=== PATIENT | female | born 1990 | race Hispanic/Latino ===

== ENCOUNTER 2018-03-22 17:34 | Emergency (ER) | payer SELFPAY ==
[~2018-03-22] VITALS: Ht 162.6 cm; Wt 65.3 kg
[2018-03-22 17:56] VITALS: BP 122/83
--- NOTE | 2018-03-22 21:25 | ED GENERAL ADULT ---
History of Present Illness General Chief Complaint: Abdominal Pain/Flank Pain Stated Complaint: ABD PAIN Source: patient Exam Limitations: no limitations Vital Signs & Intake/Output Vital Signs & Intake/Output Vital Signs Date Time Temp Pulse Resp B/P B/P Pulse O2 O2 Flow FiO2 Mean Ox Delivery Rate 03/22 1756 98.0 76 18 122/83 99 Room Air Allergies Coded Allergies: No Known Allergies (03/22/18) Triage Note: 28F REPORTS LOW PELVIC PAIN CENTRALLY LOCATED NON-RADIATING WITHOUT DYSURIA. STATES IT FEELS LIKE CRAMPS FROM MENSTRUATION, BUT SHE IS 10 DAYS LATE FOR HER PERIOD. DENIES VAGINAL DISCHARGE. Triage Nurses Notes Reviewed? yes : No Patient currently breastfeeds: No HPI: 28-year-old female presents with lower abdominal pain for the past couple of days. She reports last menstrual period was end of January. She denies fever, chills, nausea, vomiting or dysuria, vaginal discharge. She denies flank pain. Patient denies diarrhea. Past History Travel History Traveled to [place] past 21 day No Medical History Any Pertinent Medical History? none Surgical History Surgical History: non-contributory Psychosocial History What is your primary language Ukrainian Tobacco Use: Never used Family History Hx Contributory? No Review of Systems Review of Systems Constitutional: Denies: chills, diaphoresis, fever. EENTM: Denies: blurred vision, double vision, visual changes. Respiratory: Denies: cough, hemoptysis, orthopnea. Cardiovascular: Denies: chest pain, edema, orthopena. GI: Reports: abdominal pain. Denies: bloating, constipation, diarrhea, nausea, vomiting. Genitourinary: Denies: discharge, dysuria, frequency. Musculoskeletal: Denies: back pain, gout. Skin: Denies: cysts, change in skin color. Neurological/Psychological: Denies: anxiety, ataxia. Physical Exam Physical Exam General Appearance: well developed/nourished, no apparent distress, alert, awake Head: atraumatic, normal appearance Eyes: Bilateral: PERRL, EOMI. Ears, Nose, Throat: normal pharynx, normal ENT inspection Neck: normal inspection, supple Respiratory: normal breath sounds, chest non-tender Cardiovascular: regular rate/rhythm Gastrointestinal: normal bowel sounds, soft, mild supra pubic tenderness. no RLQ pain Back: normal inspection Core Measures ACS in differential dx? No CVA/TIA Diagnosis: No Sepsis Present: No Sepsis Focused Exam Completed? No Progress Differential Diagnoses . Plan of Care: Orders Procedure Date/time Status LIPASE 03/22 2111 Complete HUMAN BETA HCG TITRE 03/22 2111 Complete COMPREHENSIVE METABOLIC PANEL 03/22 2111 Complete CBC WITHOUT DIFFERENTIAL 03/22 2111 Complete TYPE & SCREEN (NOT X-MATCH) 03/22 2111 Complete URINE 03/22 1757 Complete URINALYSIS 03/22 1757 Complete Laboratory Tests 03/22/182156: Anion Gap 11, Estimated GFR > 60, BUN/Creatinine Ratio 22.0, Glucose 98, Calcium 9.6, Total Bilirubin 0.3, AST 19, ALT 28, Alkaline Phosphatase 72, Total Protein 7.5, Albumin 4.5, Globulin 3.0, Albumin/Globulin Ratio 1.5, Lipase 133, Beta HCG , Quant 236.1, CBC w Diff NO MAN DIFF REQ, RBC 4.57, MCV 89.4, MCH 30.9, MCHC 34.5, RDW 13.0, MPV 8.0, Gran % 63.2, Lymphocytes % 29.9, Monocytes % 5.7, Eosinophils % 0.9, Basophils % 0.3, Absolute Granulocytes 5.7, Absolute Lymphocytes 2.7, Absolute Monocytes 0.5, Absolute Eosinophils 0.1, Absolute Basophils 0 03/22/181802: Urine Color YEL, Urine Clarity CLEAR, Urine pH 6.0, Ur Specific [place] 1.025, Urine Protein NEG, Urine Ketones NEG, Urine Nitrite NEG, Urine Bilirubin NEG, Urine Urobilinogen 0.2, Ur Leukocyte Esterase NEG, Ur Microscopic EXAM NOT REQUIRED, Urine Hemoglobin NEG, Urine Glucose NEG, Urine Test POSITIVE Initial ED EKG: none Comments: 28-year-old female with lower abdominal pain. Positive test. We will check her hCG. Will check a BRS. We will get ultrasound. No right lower quadrant tenderness. No signs of appendicitis on physical exam. No distress. 2306 the patient left without finishing treatment. She has no demonstrated intrauterine but the patient's hCG is only 236. There is concern for ectopic versus threatened AB given the patient's presentation. Otherwise lab work is normal. The patient eloped from the emergency room. We have called her phone #3 times and left a voicemail for her to call back in the charge nurse is aware that the patient needs to follow-up with OB for repeat quadrants with ectopic warnings. I did not get to reexamine the patient's abdomen. Initial abdominal exam was not concerning. The patient left without finishing treatment. Departure Departure Time of Disposition: 2314 Disposition: ER WALKOUT Condition: Stable Clinical Impression Primary Impression: Referrals: Patient Has No Primary Care Dr (PCP/Family) Departure Forms: Customer Survey General Discharge Information Critical Care Note Critical Care Note Critical Care Time: non-applicable
[2018-03-22 22:06] LABS: ABSOLUTE BASOPHIL COUNT 0 /CUMM (0.0-0.2); ABSOLUTE EOSINOPHIL COUNT 0.1 /CUMM (0.0-0.7); ABSOLUTE GRANULOCYTE CT 5.7 /CUMM (1.4-6.5); ABSOLUTE LYMPH COUNT 2.7 /CUMM (1.2-3.4); ABSOLUTE MONOCYTE COUNT 0.5 /CUMM (0.10-0.60); BASOPHIL % 0.3 % (0.0-2.0); EOSINOPHIL % 0.9 % (0-5); GRANULOCYTE % 63.2 % (42.2-75.2); HEMATOCRIT 40.9 % (37-47); MEAN CORPUSCULAR HGB 30.9 PG (27.0-31.0); MEAN CORPUSCULAR HGB CONC 34.5 G/DL (33.0-37.0); MEAN CORPUSCULAR VOLUME 89.4 FL (81.0-99.0); PLATELET COUNT 269 /CUMM (130-400); RED BLOOD CELL CT 4.57 /CUMM (4.20-5.40)
--- NOTE | 2018-03-22 22:34 | ULTRASOUND REPORT ---
EXAMINATION: US TRANSVAGINAL CLINICAL INFORMATION: Lower abdominal pain. Rule out ectopic. COMPARISON: None TECHNIQUE: Transabdominal and transvaginal imaging of pelvis was performed. FINDINGS: The uterus appears retroverted with no intrauterine gestational sac or pole seen. The endometrial thickness is 2.1 cm on transvaginal exam. The cervix is closed measuring 2.5 cm. There are several nabothian cysts noted. Right ovary measures 3.3 x 2.2 x 3.1 cm. There is anechoic cyst measuring 1.7 x 1.7 x 1.8 cm. This is likely a small corpus luteal cyst. Left ovary measures 2.7 x 1.4 x 2.1 cm. It appears unremarkable. There is normal arterial and venous flow seen on Doppler exam to both ovaries. There is no free fluid seen. IMPRESSION: Retroverted uterus with no intrauterine gestation sac or pole seen. There is no pelvic mass or ectopic seen at this time. There is no free fluid in the pelvis. A small right ovarian corpus luteal cyst is seen. Otherwise ovaries are normal and unremarkable.
== END 2018-03-22 23:15 ==
LOC: ERH 17:34
PROVIDERS: Emergency Medicine
DX: Z32.01 Encounter for pregnancy test, result positive (principal)
CPT/HCPCS: 76817; 81003; 81025